=== PATIENT | female | born 1990 | race African-American/Black ===

== ENCOUNTER 2017-08-09 19:05 | Emergency (ER) | payer OTHER, BC ==
[2017-08-09] MEDS ORDERED: Ketorolac Tromethamine 30 MG/ML VIAL ONE (20:08)
== END 2017-08-09 20:21 | disposition home or self-care (01) ==
LOC: ERS 19:05
DX: M54.5 Low back pain (principal); I10 Essential (primary) hypertension; V43.62XA Car passenger injured in collision with other type car in traffic accident, initial encounter
CPT/HCPCS: 96372; J1885